=== PATIENT | male | born 1995 | race Caucasian/White ===

== ENCOUNTER 2017-07-11 09:05 | Emergency (ER) | payer MEDICAID ==
[2017-07-11 09:09] VITALS: BP 117/61; PULSE 67; RESP 16; TEMP 96.8; O2SAT 100
[2017-07-11] MEDS ORDERED: Sodium Chloride 0.9% 1,000 ML IV STA (09:21)
--- NOTE | 2017-07-11 09:32 | ED PDOC ---
HPI: Male Pain Time Seen by Provider: 07/11/17 09:12 Chief Complaint (Nursing): Male Genitourinary Chief Complaint (Provider): Urinary frequency History Per: Patient History/Exam Limitations: no limitations Onset/Duration Of Symptoms: Days (x 1 week) Current Symptoms Are (Timing): Still Present Associated Symptoms: Back Pain, Urinary Symptoms Additional Complaint(s): Morgan is a 21 y/o male who presents to the ED complaining of urinary frequency, dysuria, and left flank pain radiating to left upper abdomen, for 1 week. Denies hematuria, testicular pain, penile discharge, nausea, vomiting, diarrhea , lower abdominal pain, chest pain, shortness of breath, weakness, numbness, or tingling. States he was admitted for similar symptoms around age 17, but does not recall details. Patient believes he has a UTI, and took AZO at home without relief. PMD: Dr. Ludwig Past Medical History Reviewed: Historical Data, Nursing Documentation, Vital Signs Vital Signs: Last Vital Signs Temp 96.8 F L 07/11/17 09:08 Pulse 67 07/11/17 09:08 Resp 16 07/11/17 09:08 BP 117/61 07/11/17 09:08 Pulse Ox 100 07/11/17 09:08 - Medical History PMH: Denies: Chronic Kidney Disease Other PMH: uti - Surgical History Surgical History: No Surg Hx - Family History Family History: States: Unknown Family Hx - Social History Current smoker - smoking cessation education provided: No Alcohol: None Drugs: Denies - Immunization History Hx Tetanus Toxoid Vaccination: No Hx Influenza Vaccination: No Hx Pneumococcal Vaccination: No - Home Medications Home Medications: Ambulatory Orders Medication Instructions Recorded Ciprofloxacin HCl [Cipro] 500 mg PO BID 7 Days tab 07/11/17 Ibuprofen [Motrin] 600 mg PO TID 7 Days tab 07/11/17 - Allergies Allergies/Adverse Reactions: Allergies Allergy/AdvReac Type Severity Reaction Status Date / Time No Known Allergies Allergy Verified 07/11/17 09:23 Review of Systems ROS Statement: Except As Marked, All Systems Reviewed And Found Negative Constitutional: Negative for: Fever, Chills Cardiovascular: Negative for: Chest Pain Respiratory: Negative for: Cough, Shortness of Breath Gastrointestinal: Negative for: Nausea, Vomiting, Abdominal Pain, Diarrhea Genitourinary Male: Positive for: Dysuria, Frequency. Negative for: Hematuria, Penile Discharge, Other (Testicular pains) Musculoskeletal: Positive for: Back Pain (Left flank pain) Neurological: Negative for: Weakness, Numbness, Headache, Dizziness Physical Exam - Reviewed Nursing Documentation Reviewed: Yes Vital Signs Reviewed: Yes - Physical Exam Appears: Positive for: Non-toxic, No Acute Distress Head Exam: Positive for: ATRAUMATIC, NORMOCEPHALIC Skin: Positive for: Normal Color, Warm, Dry Eye Exam: Positive for: EOMI, Normal appearance, PERRL Neck: Positive for: Normal, Painless ROM, Supple Cardiovascular/Chest: Positive for: Regular Rate, Rhythm. Negative for: Murmur Respiratory: Positive for: Normal Breath Sounds. Negative for: Respiratory Distress Gastrointestinal/Abdominal: Positive for: Normal Exam, Soft. Negative for: Tenderness Back: Positive for: Normal Inspection, Other (Mild bilateral flank tenderness) Extremity: Positive for: Normal ROM. Negative for: Tenderness, Pedal Edema, Deformity Neurologic/Psych: Positive for: Alert, Oriented (x3). Negative for: Motor/ Sensory Deficits - Laboratory Results Result Diagrams: 07/11/17 09:35 07/11/17 09:35 Interpretation Of Abn Labs: urine bacteria - ECG O2 Sat by Pulse Oximetry: 100 (RA) Pulse Ox Interpretation: Normal - CT Scan/US ct Other Rad Studies (CT/US): Read By Radiologist Other Rad Interpretation: no acute - Progress ED Course And Treament: 1126: Stable. AAOx3. Pain controlled. Fu with pcp. Tolerated PO. Medical Decision Making Medical Decision Making: Time: 9:21 Initial Impression: UTI vs. pyelonephritis Initial Plan: --Urine dipstick --CBC --CMP --Urinalysis --Urine culture --NS IV 1000 ml at 1000 mls/hr --Toradol 15 mg IV --Pending CT Abd/Pelvis w/ IV contrast Scribe Attestation: Documented by Brittany Delgado, acting as a scribe for Ulises Muhammad MD Provider Scribe Attestation: All medical record entries made by the Scribe were at my direction and personally dictated by me. I have reviewed the chart and agree that the record accurately reflects my personal performance of the history, physical exam, medical decision making, and the department course for this patient. I have also personally directed, reviewed, and agree with the discharge instructions and disposition. Disposition - Clinical Impression Clinical Impression: Urinary tract infection, Flank pain - Patient ED Disposition Is Patient to be Admitted: No Counseled Patient/Family Regarding: Studies Performed, Diagnosis, Need For Followup, Rx Given - Disposition Referrals: [facility] [Outside] - 07/12/17 Disposition: Routine/Home Disposition Time: 11:27 Condition: STABLE Additional Instructions: Return if not better in 3 days. Prescriptions: Ciprofloxacin HCl [Cipro] 500 mg PO BID 7 Days tab Ibuprofen [Motrin] 600 mg PO TID 7 Days tab Instructions: Urinary Tract Infection in Men (ED), Flank Pain (ED) Forms: [facility] (K[place]z), [facility] ED School/Work Excuse
[2017-07-11 09:49] LABS: BASO % 0.5 % (0.0-2.0); EOS # 0.1 K/uL (0.0-0.7); EOS % 3.5 % (0.0-4.0); HEMATOCRIT 40.5 % (35.0-51.0); LYMPH % 48.7 % (20.0-40.0); MEAN CELL VOLUME 87.9 fl (80.0-94.0); MEAN CORPUSCULAR HEMOGLOBIN 30.4 pg (27.0-31.0); MEAN CORPUSCULAR HGB CONC 34.6 g/dL (33.0-37.0); MEAN PLATELET VOLUME 7.9 fl (7.2-11.7); MONO # 0.3 K/uL (0.0-0.8); MONO % 7.3 % (0.0-10.0); NEUT # 1.6 K/uL (1.8-7.0); NRBC % 0.1 % (0.0-0.0); RED CELL DISTRIBUTION WIDTH 13.1 % (11.5-14.5); WHITE BLOOD COUNT 4.1 K/uL (4.8-10.8)
[2017-07-11 09:54] LABS: RBC URINE < 1 /hpf (0-3); URINE BILIRUBIN NEGATIVE (NEGATIVE); URINE BLOOD NEGATIVE (NEGATIVE); URINE COLOR AMBER (YELLOW); URINE GLUCOSE (UA) NEG (Normal); URINE KETONE NEGATIVE (NEGATIVE); URINE LEUKOCYTE ESTERASE NEG Leu/uL (Negative); URINE PROTEIN NEGATIVE (NEGATIVE); WBC URINE < 1 /hpf (0-5)
[2017-07-11 09:57] LABS: ALB/GLOB RATIO 1.5 (1.0-2.1); ALKALINE PHOSPHATASE 51 U/L (38-126); ALT/SGPT 31 U/L (21-72); AST/SGOT 28 U/L (17-59); BILIRUBIN,TOTAL 1.9 mg/dl (0.2-1.3); BLOOD UREA NITROGEN 12 mg/dl (9-20); CALCIUM 9.7 mg/dL (8.4-10.2); CARBON DIOXIDE 26 mmol/L (22-30); CHLORIDE 102 mmol/L (98-107); GFR AFRICAN-AMERICAN > 60; GLUCOSE,RANDOM 95 mg/dL (75-110); POTASSIUM 3.8 MMOL/L (3.6-5.0); SODIUM 144 mmol/l (132-148)
[2017-07-11 10:15] LABS: URINE BACTERIA FEW (<OCC)
[2017-07-11] MEDS ORDERED: Iohexol 300 100 ML IJ ONE (10:25)
[2017-07-11] MEDS ORDERED: Sodium Chloride 0.9% 50 ML IV ONE (10:26)
--- NOTE | 2017-07-11 11:21 | CT ---
PROCEDURE: CT Abdomen and Pelvis with contrast HISTORY: flank pain COMPARISON: None. TECHNIQUE: Contrast dose: 100 milliliters Omnipaque 300 Radiation dose: Total exam DLP = 654 mGy-cm. This CT exam was performed using one or more of the following dose reduction techniques: Automated exposure control, adjustment of the mA and/or kV according to patient size, and/or use of iterative reconstruction technique. FINDINGS: LOWER THORAX: Lungs are clear. No effusion is seen. Visualized esophagus is unremarkable. LIVER: Unremarkable. No gross lesion or ductal dilatation. GALLBLADDER AND BILE DUCTS: Unremarkable. PANCREAS: Unremarkable. No gross lesion or ductal dilatation. SPLEEN: Unremarkable. ADRENALS: Unremarkable. No mass. KIDNEYS AND URETERS: Unremarkable. No hydronephrosis. No solid mass. VASCULATURE: Unremarkable. No aortic aneurysm. BOWEL: Unremarkable. No obstruction. No gross mural thickening. Visualized stomach and duodenum are within normal limits. No small bowel dilatation or small bowel fold thickening is seen. APPENDIX: Normal appendix. PERITONEUM: Unremarkable. No free fluid. No free air. LYMPH NODES: Unremarkable. No enlarged lymph nodes. BLADDER: Unremarkable. REPRODUCTIVE: Unremarkable. BONES: No acute fracture. OTHER FINDINGS: None. IMPRESSION: No appreciable acute inflammatory process in the abdomen or pelvis. No CT scan evidence of appendicitis, hydronephrosis, or perinephric change. No ureteral calculus clearly seen. Bladder is otherwise unremarkable.
== END 2017-07-11 11:44 | disposition home or self-care (01) ==
LOC: H.ER 09:05
DX: N12 Tubulo-interstitial nephritis, not specified as acute or chronic (principal)
CPT/HCPCS: 74177; 80053; 81003; 85025; 87086; 96361; 96374; 99283; J1885; J7040; Q9967